=== PATIENT | female | born 1960 | race African-American/Black ===

== ENCOUNTER 2017-05-05 08:31 | Outpatient (CLI) | payer MEDICARE, MEDICAID | END 2017-05-05 08:32 | disposition home or self-care (01) | LOC: BICMAMMO 08:31 | PROVIDERS: ATTEND Family Medicine | DX: Z12.31 Encounter for screening mammogram for malignant neoplasm of breast (principal); Z85.3 Personal history of malignant neoplasm of breast | CPT/HCPCS: 77063; 77067 ==

== ENCOUNTER → 2017-05-05 | Outpatient (CLI) | payer MEDICARE, MEDICAID ==
[~2017-05-05] MED LIST: Gadobenate Dimeglumine 529 MG/1 ML (20ML VIAL) ONE
== END ==
LOC: BICMRI 12:54
PROVIDERS: ATTEND Family Medicine
DX: G44.89 Other headache syndrome (principal)
CPT/HCPCS: 70553; A9579

== ENCOUNTER 2017-06-04 19:50 | Emergency (ER) | payer MEDICARE, MEDICAID ==
[2017-06-04] MEDS ORDERED: traMADol HCl 50 MG TAB ONE (20:24)
--- NOTE | 2017-06-04 21:18 | CT ---
CERVICAL SPINE CT: Date: 06-04-17 Comparison: 05-29-13 History: Trauma, pain. Technique: Serial axial CT imaging at 2.5 mm intervals from skull base through the lung apices withou t contrast. Coronal and sagittal reformatted imaging obtained. FINDINGS: Imaged lung apices unremarkable. Imaged paranasal sinuses are well aerated. There is corticated disc continuity involving the anterior and posterior aspect of the C1 ring, stabl e, likely on the basis of congenital or remote post-traumatic change. The occipital condyles, dens, and C1-2 articulation are unremarkable. C6-7: Not well assessed on this exam. There is no significant anterolisthesis or retrolisthesis seen within the cervical spine. No preverte bral soft tissue swelling. No displaced fracture or evidence of dislocation. IMPRESSION: 1. No acute fracture or evidence of dislocation. POS: [facility]
--- NOTE | 2017-06-04 21:21 | CT ---
HEAD CT WITHOUT CONTRAST: Date: 06-04-17 Comparison: 11-04-13 History: Headache, trauma, pain. Technique: Serial axial CT imaging at 5 mm intervals from vertex through skull base without contrast. FINDINGS: The imaged paranasal sinuses and mastoid air cells are well aerated. There is incomplete fusion versu s old fracture involving the anterior and posterior aspect of the C1 ring. There is an old fracture involving the left zygomatic arch. 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 No intracra nial hemorrhage, midline shift, mass effect, or ventricular enlargement. No acute displaced calvarial fracture. IMPRESSION: Chronic findings as detailed above. No acute findings seen. POS: [facility]
== END 2017-06-04 21:32 | disposition home or self-care (01) ==
LOC: ERS 19:50
DX: S16.1XXA Strain of muscle, fascia and tendon at neck level, initial encounter (principal); S09.90XA Unspecified injury of head, initial encounter; E11.9 Type 2 diabetes mellitus without complications; E78.5 Hyperlipidemia, unspecified; I10 Essential (primary) hypertension; F32.9 Major depressive disorder, single episode, unspecified; F17.210 Nicotine dependence, cigarettes, uncomplicated; Z79.899 Other long term (current) drug therapy; Z79.84 Long term (current) use of oral hypoglycemic drugs; V00.131A Fall from skateboard, initial encounter
CPT/HCPCS: 70450; 72125

== ENCOUNTER 2017-09-05 09:21 | Outpatient (CLI) | payer MEDICARE, MEDICAID | END 2017-09-05 09:22 | disposition home or self-care (01) | LOC: BICRAD 09:21 | PROVIDERS: ATTEND Family Medicine | DX: M79.644 Pain in right finger(s) (principal) ==

== ENCOUNTER 2017-09-09 13:37 | Emergency (ER) | payer MEDICARE, MEDICAID ==
--- NOTE | 2017-09-09 14:42 | RAD ---
THREE VIEWS RIGHT WRIST: COMPARISON: None. History Fell while skating with right wrist pain. FINDINGS: Three views of the right wrist show no evidence of acute fracture or dislocation. Mild soft tissue s welling is seen. No degenerative changes are present. IMPRESSION: No evidence of acute osseous abnormality. POS: [facility]
[2017-09-09 15:00] LABS: #Basophils 0.1 thou/uL (0.0-0.2); #Eosinphils 0.1 thou/uL (0.0-0.7); #Lymphocytes 2.5 thou/uL (1.20-3.40); #Monocytes 0.5 thou/uL (0.11-0.59); #Neutrophils 3.2 thou/uL (1.40-6.50); %Basophils 1.2 % (0.0-1.0); %Eosinophils 1.1 % (0.0-10.0); %Lymphocytes 38.9 % (21.0-51.0); %Monocytes 8.2 % (0.0-10.0); %Neutrophils 50.6 % (42.0-75.0); Hemoglobin 10.9 g/dL (12.0-16.0); Mean Corpuscular HGB CONC 32.3 g/dL (32.0-36.0); Mean Corpuscular Hemoglobin 24.4 pg (27.0-31.0); Mean Corpuscular Volume 75.4 fL (78.0-98.0); Mean Platelet Volume 7.7 fL (7.4-10.4); Platelet Count 222 thou/uL (130-400); RBC Distribution Width 13.9 % (11.5-14.5); Red Blood Cell (RBC) Count 4.45 mill/uL (4.20-5.40); White Blood Cell (WBC) Count 6.4 thou/uL (4.8-10.8)
[2017-09-09 15:18] LABS: Anion Gap 13 mmol/L (10-20); BUN (Urea Nitrogen) 13 mg/dL (9.8-20.1); Calc. Creatinine Clearance 0 mL/min (70-130); Calcium 9.6 mg/dL (7.8-10.44); Carbon Dioxide 27 mmol/L (22-29); Chloride 105 mmol/L (98-107); Estimated GFR-MDRD 74; Glucose 81 mg/dL (70-105); Potassium 3.8 mmol/L (3.5-5.1); Sodium 141 mmol/L (136-145)
[2017-09-09] MEDS ORDERED: Acetaminophen 500 MG TAB ONE (15:24)
== END 2017-09-09 16:09 | disposition home or self-care (01) ==
LOC: ERS 13:37
DX: M25.531 Pain in right wrist (principal); D64.9 Anemia, unspecified; V00.131A Fall from skateboard, initial encounter; Y93.51 Activity, roller skating (inline) and skateboarding
CPT/HCPCS: 36415; 80048; 85025; 85652; 86140

== ENCOUNTER 2017-09-11 13:34 | Emergency (ER) | payer MEDICARE, MEDICAID ==
[2017-09-11] MEDS ORDERED: Ketorolac Tromethamine 60 MG/2 ML VIAL ONE (16:41)
== END 2017-09-11 17:05 | disposition home or self-care (01) ==
LOC: ERS 13:34
DX: M77.9 Enthesopathy, unspecified (principal); E11.9 Type 2 diabetes mellitus without complications; E78.5 Hyperlipidemia, unspecified; I10 Essential (primary) hypertension; F32.9 Major depressive disorder, single episode, unspecified; Z87.891 Personal history of nicotine dependence; Z79.84 Long term (current) use of oral hypoglycemic drugs; Z79.899 Other long term (current) drug therapy
CPT/HCPCS: 99283; J1885

== ENCOUNTER 2017-11-28 13:58 | Emergency (ER) | payer MEDICARE, MEDICAID ==
--- NOTE | 2017-11-28 15:39 | RAD ---
PA AND LATERAL CHEST: Date: 11/28/17 HISTORY: Cough. COMPARISON: 03/26/06. FINDINGS: The cardiac silhouette and pulmonary vasculature are within normal limits. The lungs remain clear. Th ere has been no interval change from prior study. IMPRESSION: No acute cardiopulmonary process. POS: [facility]
--- NOTE | 2017-11-28 15:43 | RAD ---
SOFT TISSUE NECK: Date: 11/28/17 HISTORY: Evaluate for foreign body. Patient accidentally swallowed her earrings while taking her medication. T hroat discomfort. COMPARISON: None. FINDINGS: No definite radiopaque foreign body. Calcification of the thyroid cartilage is noted. There appears t o be a round calcified focus projecting over the upper airway measuring 1.0 cm at the level of the C6 level. Correlation made with cervical spine from 06/04/17 demonstrates that the calcification at the level of the aerodigestive tract is actually within the right thyroid lobe. IMPRESSION: No evidence of a radiopaque foreign body. Nevertheless, direct visualization is recommended. POS: [facility]
== END 2017-11-28 15:53 | disposition home or self-care (01) ==
LOC: ERS 13:58
DX: T18.8XXA Foreign body in other parts of alimentary tract, initial encounter (principal); E11.9 Type 2 diabetes mellitus without complications; E78.5 Hyperlipidemia, unspecified; I10 Essential (primary) hypertension; Z87.891 Personal history of nicotine dependence
CPT/HCPCS: 70360; 71046

== ENCOUNTER 2018-04-11 10:20 | Outpatient (CLI) | payer MEDICARE, MEDICAID ==
--- NOTE | 2018-04-11 13:45 | ULT ---
LEFT BREAST ULTRASOUND: HISTORY: Palpable abnormality in the left breast. TECHNIQUE: Real-time imaging of the left breast was performed in the region of concern, at approximately the 2 o 'clock position. FINDINGS: No cystic or solid mass identified. IMPRESSION: BI-RADS category 2-Benign findings. POS: [facility]
== END 2018-04-11 10:21 | disposition home or self-care (01) ==
LOC: BICMAMMO 10:20
PROVIDERS: ATTEND Family Medicine
DX: N64.4 Mastodynia (principal); N64.89 Other specified disorders of breast; Z85.3 Personal history of malignant neoplasm of breast
CPT/HCPCS: 76642; 77065; G0279

== ENCOUNTER 2018-05-25 09:10 | Emergency (ER) | payer MEDICARE, MEDICAID ==
--- NOTE | 2018-05-25 09:57 | RAD ---
RIGHT HAND 3 VIEWS: Date: 05/25/18 HISTORY: Pain. Fall while skating. COMPARISON: None. FINDINGS: Advanced degenerative changes of the small finger proximal interphalangeal joint with remodeling of t he middle phalanx base. Mild degenerative disease of the radiocarpal joint. Likely an old fracture of distal radius. No acute fracture or malalignment is appreciated. IMPRESSION: Chronic findings. No acute displaced fracture or malalignment. POS: [facility]
== END 2018-05-25 10:31 | disposition home or self-care (01) ==
LOC: ERS 09:10
DX: M79.641 Pain in right hand (principal); M25.531 Pain in right wrist; E11.9 Type 2 diabetes mellitus without complications; E78.5 Hyperlipidemia, unspecified; I10 Essential (primary) hypertension; E55.9 Vitamin D deficiency, unspecified; Z87.891 Personal history of nicotine dependence; Z85.3 Personal history of malignant neoplasm of breast

== ENCOUNTER 2019-01-01 12:39 | Emergency (ER) | payer MEDICARE, MEDICAID ==
[2019-01-01] MEDS ORDERED: HYDROcodone/Acetaminophen 5/325 mg Tablet ONE (13:28)
--- NOTE | 2019-01-01 13:43 | RAD ---
RADIOGRAPH LEFT KNEE 4VIEWS: DATE: 01/01/2019 HISTORY: 58-year-old female with acute traumatic left knee pain due to fall FINDINGS: There is no evidence of fracture or dislocation. There is no evidence of periostitis, permeative lesi on, osteolytic lesion, or osteoblastic lesion. The joint spaces are maintained without erosions or significant osteophytes. No joint effusion is identified. IMPRESSION: Normal
== END 2019-01-01 14:06 | disposition home or self-care (01) ==
LOC: ERS 12:39
DX: M25.562 Pain in left knee (principal); E11.9 Type 2 diabetes mellitus without complications; E78.5 Hyperlipidemia, unspecified; I10 Essential (primary) hypertension; Z85.3 Personal history of malignant neoplasm of breast; Z87.891 Personal history of nicotine dependence; W01.0XXA Fall on same level from slipping, tripping and stumbling without subsequent striking against object, initial encounter

== ENCOUNTER 2019-05-14 08:14 | Outpatient (CLI) | payer MEDICARE, MEDICAID ==
--- NOTE | 2019-05-14 09:41 | MMO ---
Bilateral MAMMO Bilat Screen [facility]. CLINICAL HISTORY: Patient is 58 years old and is seen for screening. 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 VIEWS: The views performed were: right craniocaudal with tomosynthesis and right mediolateral oblique with tomosynthesis. FILMS COMPARED: The present examination has been compared to prior imaging studies performed at [facility] on 11/14/2014, 02/17/2016, 05/05/2017 and 04/11/2018. This study has been interpreted with the assistance of computer-aided detection. MAMMOGRAM FINDINGS: There are scattered fibroglandular densities. Finding 1: There are stable benign appearing calcifications seen in both breasts. Finding 2: There is a stable asymmetry seen in the upper region of the left breast. There are no suspicious masses, suspicious calcifications, or new areas of architectural distortion. IMPRESSION: THERE IS NO MAMMOGRAPHIC EVIDENCE OF MALIGNANCY. A ROUTINE FOLLOW-UP MAMMOGRAM IN 1 YEAR IS RECOMMENDED. THE RESULTS OF THIS EXAM WERE SENT TO THE PATIENT. ACR BI-RADS Category 2 - Benign finding MAMMOGRAPHY NOTE: 1. A negative mammogram report should not delay a biopsy if a dominant of clinically suspicious mass is present. 2. Approximately 10% to 15% of breast cancers are not detected by mammography. 3. Adenosis and dense breasts may obscure an underlying neoplasm. Reported by: ROSE VALENTE MD Electonically Signed: [id number]
== END 2019-05-14 08:15 | disposition home or self-care (01) ==
LOC: BICMAMMO 08:14
PROVIDERS: ATTEND Family Medicine
DX: Z12.31 Encounter for screening mammogram for malignant neoplasm of breast (principal); Z91.89 Other specified personal risk factors, not elsewhere classified; Z98.82 Breast implant status; Z90.11 Acquired absence of right breast and nipple; Z85.3 Personal history of malignant neoplasm of breast
CPT/HCPCS: 77063; 77067

== ENCOUNTER 2019-08-19 14:27 | Emergency (ER) | payer MEDICARE, MEDICAID ==
[2019-08-19 16:10] LABS: Bilirubin Negative (Negative); Blood, Urine Negative (Negative); Clarity Clear (Clear); Glucose, Urine (Dipstick) Normal (Negative); Leukocyte Negative Leu/uL (Negative); Nitrite Negative (Negative); Protein, Urine (Dipstick) Negative (Neg-Trace)
== END 2019-08-19 17:45 | disposition home or self-care (01) ==
LOC: ERS 14:27
DX: S30.814A Abrasion of vagina and vulva, initial encounter (principal); E11.9 Type 2 diabetes mellitus without complications; E78.5 Hyperlipidemia, unspecified; I10 Essential (primary) hypertension; E55.9 Vitamin D deficiency, unspecified; F31.9 Bipolar disorder, unspecified; Z87.891 Personal history of nicotine dependence; Z85.3 Personal history of malignant neoplasm of breast; Z86.79 Personal history of other diseases of the circulatory system; X58.XXXA Exposure to other specified factors, initial encounter
CPT/HCPCS: 81003; 87086; 99283

== ENCOUNTER 2019-09-02 10:54 | Emergency (ER) | payer MEDICARE, MEDICAID | END 2019-09-02 15:15 | disposition home or self-care (01) | LOC: ERS 10:54 | DX: I80.02 Phlebitis and thrombophlebitis of superficial vessels of left lower extremity (principal); L03.032 Cellulitis of left toe; E11.9 Type 2 diabetes mellitus without complications; E78.5 Hyperlipidemia, unspecified; I10 Essential (primary) hypertension; F31.9 Bipolar disorder, unspecified; Z87.891 Personal history of nicotine dependence; Z79.899 Other long term (current) drug therapy | CPT/HCPCS: 99283 ==

== ENCOUNTER 2019-10-02 10:40 | Outpatient (CLI) | payer MEDICARE, MEDICAID ==
--- NOTE | 2019-10-02 11:15 | RAD ---
XR Knee Lt 4 View STANDARD HISTORY: Left anterior knee pain FINDINGS: No fracture or dislocation is identified. No joint effusion is seen.
--- NOTE | 2019-10-02 11:15 | RAD ---
XR Knee Rt 4 View STANDARD HISTORY: Swelling of the right knee joint and pain FINDINGS: No acute fracture or dislocation is identified. Mild degenerative changes are present. No joint effus ion is seen. A well-corticated bony density adjacent to the medial femoral condyle is likely due to remote trauma.
== END 2019-10-02 10:41 | disposition home or self-care (01) ==
LOC: BICRAD 10:40
PROVIDERS: ATTEND Family Medicine
DX: M25.562 Pain in left knee (principal); M25.461 Effusion, right knee

== ENCOUNTER 2020-01-16 13:52 | Outpatient (CLI) | payer MEDICARE, MEDICAID ==
--- NOTE | 2020-01-16 14:54 | MMO ---
Left Breast MAMMO Unilat Diag [facility]DI [facility]TIERA. CLINICAL HISTORY: Patient is 59 years old and is seen for diagnostic exam and pain in the upper-outer region of the left breast. 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 VIEWS: The views performed were: left craniocaudal with tomosynthesis; left mediolateral oblique with tomosynthesis; left mediolateral with tomosynthesis; and left exaggerated craniocaudal with tomosynthesis. FILMS COMPARED: The present examination has been compared to prior imaging studies performed at [facility] on 05/05/2017, 04/11/2018, 05/14/2019 and 01/16/2020. This study has been interpreted with the assistance of computer-aided detection. MAMMOGRAM FINDINGS: There are scattered fibroglandular densities. Finding 1: There are stable benign appearing calcifications seen in the left breast. Finding 2: There is a stable asymmetry seen in the upper region of the left breast. There are no suspicious masses, suspicious calcifications, or new areas of architectural distortion. IMPRESSION: THERE IS NO MAMMOGRAPHIC EVIDENCE OF MALIGNANCY. A ROUTINE FOLLOW-UP MAMMOGRAM IN 1 YEAR IS RECOMMENDED. THE RESULTS OF THIS EXAM WERE SENT TO THE PATIENT. ACR BI-RADS Category 2 - Benign finding MAMMOGRAPHY NOTE: 1. A negative mammogram report should not delay a biopsy if a dominant of clinically suspicious mass is present. 2. Approximately 10% to 15% of breast cancers are not detected by mammography. 3. Adenosis and dense breasts may obscure an underlying neoplasm. Reported by: ROSE VALENTE MD Electonically Signed: [id number]
--- NOTE | 2020-01-16 17:59 | ULT ---
LIMITED ULTRASOUND LEFT BREAST: 01/16/20 HISTORY: Pain in the upper outer left breast. FINDINGS: Limited sonographic evaluation was obtained in region of patient's focal area of pain. No solid mass or cystic lesion is seen in the left breast imaging from the 12 o'clock to 3 o'clock position in saloni on of patient's pain. No mammographic abnormality is demonstrated in the left breast. IMPRESSION: 1. BIRADS 2: Benign Finding(s) Routine annual screening mammography (for women over age 40). 2. Patient's left breast pain should be further managed clinically. POS: [facility]
== END 2020-01-16 13:53 | disposition home or self-care (01) ==
LOC: BICMAMMO 13:52
PROVIDERS: ATTEND Family Medicine
DX: N64.4 Mastodynia (principal); Z90.11 Acquired absence of right breast and nipple
CPT/HCPCS: 76642; 77065; G0279

== ENCOUNTER 2020-07-12 20:39 | Observation (INO) | payer MEDICARE, MEDICAID ==
[2020-07-12] MEDS ORDERED: Nitroglycerin 2% Ointment 1 INCH/1 GM Packet ONE (21:22)
[2020-07-12 21:45] LABS: #Basophils 0.1 thou/uL (0.0-0.2); #Eosinphils 0.1 thou/uL (0.0-0.7); #Lymphocytes 2.7 thou/uL (1.20-3.40); #Monocytes 0.6 thou/uL (0.11-0.59); #Neutrophils 2.5 thou/uL (1.40-6.50); %Basophils 0.9 % (0.0-1.0); %Eosinophils 1.6 % (0.0-10.0); %Lymphocytes 45.1 % (21.0-51.0); %Neutrophils 42.4 % (42.0-75.0); Hemoglobin 11.5 g/dL (12.0-16.0); Mean Corpuscular HGB CONC 31.8 g/dL (32.0-36.0); Mean Corpuscular Hemoglobin 24.1 pg (27.0-31.0); Mean Platelet Volume 8.4 fL (7.4-10.4); Platelet Count 249 thou/uL (130-400); Red Blood Cell (RBC) Count 4.75 mill/uL (4.20-5.40)
[2020-07-12 21:47] LABS: ALT (SGPT) 18 U/L (8-55); AST (SGOT) 23 U/L (5-34); Albumin 4.3 g/dL (3.5-5.0); Alkaline Phosphatase 46 U/L (40-110); Anion Gap 16 mmol/L (10-20); BUN (Urea Nitrogen) 11 mg/dL (9.8-20.1); Bilirubin, Total 0.2 mg/dL (0.2-1.2); Calc. Creatinine Clearance 0 mL/min (70-130); Calcium 9.3 mg/dL (7.8-10.44); Carbon Dioxide 23 mmol/L (22-29); Chloride 105 mmol/L (98-107); Globulin 3.6 g/dL (2.4-3.5); Glucose 103 mg/dL (70-105); Potassium 3.8 mmol/L (3.5-5.1); Protein, Total 7.9 g/dL (6.0-8.3); Sodium 140 mmol/L (136-145)
[2020-07-12] MEDS ORDERED: Aspirin 81 mg Enteric Coated Tablet ONE (22:13)
[2020-07-12] MEDS ORDERED: Senokot S 8.6-50 MG TAB PO PRN (22:20)
[2020-07-12] MEDS ORDERED: Nitroglycerin 0.4 MG TAB (25 Tab Bottle) SL PRN (23:40)
[2020-07-13 00:56] VITALS: BMI 31.1
[2020-07-13 01:19] LABS: Troponin I Less than 0.010 ng/mL (< 0.028)
[2020-07-13 05:12] LABS: ALT (SGPT) 15 U/L (8-55); AST (SGOT) 17 U/L (5-34); Albumin 3.8 g/dL (3.5-5.0); Alkaline Phosphatase 39 U/L (40-110); Anion Gap 13 mmol/L (10-20); BUN (Urea Nitrogen) 12 mg/dL (9.8-20.1); Bilirubin, Total 0.3 mg/dL (0.2-1.2); Calc. Creatinine Clearance 86 mL/min (70-130); Calcium 9.3 mg/dL (7.8-10.44); Carbon Dioxide 24 mmol/L (22-29); Cardiac Risk 2.9 (Less than 4.5); Chloride 106 mmol/L (98-107); Cholesterol 165 mg/dl (< 200 Desired); Globulin 3.1 g/dL (2.4-3.5); Glucose 81 mg/dL (70-105); HDL Cholesterol 57 mg/dL (>60 Neg Risk); LDL Cholesterol, Calculated 91 mg/dL; Potassium 3.2 mmol/L (3.5-5.1); Protein, Total 6.9 g/dL (6.0-8.3); Sodium 140 mmol/L (136-145); Triglycerides 84 mg/dL (Less than 150)
[2020-07-13 05:14] LABS: Troponin I 0.017 ng/mL (< 0.028)
[2020-07-13 05:40] LABS: Band 1 % (5-11); Eosinophils 2 % (0-10); Hemoglobin 10.7 g/dL (12.0-16.0); Lymphocytes 56 % (21-51); MDiff Complete? YES; Mean Corpuscular HGB CONC 31.3 g/dL (32.0-36.0); Mean Corpuscular Hemoglobin 23.7 pg (27.0-31.0); Mean Corpuscular Volume 75.5 fL (78.0-98.0); Mean Platelet Volume 8.2 fL (7.4-10.4); Monocytes 10 % (0-10); Neutrophil 30 % (42-75); Platelet Count 230 thou/uL (130-400); RBC Distribution Width 13.8 % (11.5-14.5); Red Blood Cell (RBC) Count 4.53 mill/uL (4.20-5.40); White Blood Cell (WBC) Count 6.4 thou/uL (4.8-10.8)
[2020-07-13 08:00] VITALS: TEMP 97.8
[2020-07-13 08:39] LABS: SARS-CoV-2 PCR by NAA Not Detected (NotDetected)
[2020-07-13] MEDS: Acetaminophen 325 MG TAB PO PRN ×2 (08:39→13:24)
[2020-07-13] MEDS ORDERED: Aspirin 325 mg Enteric Coated Tablet PO SCH (09:00)
[2020-07-13] MEDS ORDERED: Enoxaparin Sodium 40 MG/0.4 ML SYRINGE SC SCH (09:00)
[2020-07-13] MEDS ORDERED: Famotidine 20 MG TAB PO SCH (09:00)
[2020-07-13 09:35] LABS: Free T4 (Free Thyroxine) 0.65 ng/dL (0.70-1.48)
[2020-07-13] MEDS ORDERED: ADENOSINE 60 MG/20 ML VIAL ONE (10:10)
[2020-07-13 16:00] VITALS: BP 135/78
== END 2020-07-13 17:25 | disposition home or self-care (01) ==
LOC: ERS 20:39 → 2SE 22:18
PROVIDERS: ADMIT Student in an Organized Health Care Education/Training Program; ATTEND Hospitalist
DX: R07.89 Other chest pain (principal); I10 Essential (primary) hypertension; E03.9 Hypothyroidism, unspecified; E11.9 Type 2 diabetes mellitus without complications; E78.5 Hyperlipidemia, unspecified; Z85.3 Personal history of malignant neoplasm of breast; Z87.891 Personal history of nicotine dependence; Z79.82 Long term (current) use of aspirin; Z79.899 Other long term (current) drug therapy; Z20.822 Contact with and (suspected) exposure to COVID-19
CPT/HCPCS: 71045; 78452; 80053; 80061; 82962; 84439; 84481; 84484 ×3; 85025; 93005; 93017; 94760 ×2; 96372; 99285; A9500; G0378 ×3; U0003; U0005; 36415; 36416; 84443; 87635; J0153; J1650

== ENCOUNTER 2020-12-02 08:42 | Outpatient (CLI) | payer MEDICARE, MEDICAID ==
[2020-12-02] MEDS ORDERED: Iopamidol-370 76% 500 ML 1 ML ONE (10:52)
== END 2020-12-02 08:43 | disposition home or self-care (01) ==
LOC: BICCT 08:42
PROVIDERS: ATTEND Internal Medicine Cardiovascular Disease
DX: K66.8 Other specified disorders of peritoneum (principal); N28.1 Cyst of kidney, acquired; J84.10 Pulmonary fibrosis, unspecified; K42.9 Umbilical hernia without obstruction or gangrene
CPT/HCPCS: 74177; Q9967

== ENCOUNTER 2021-01-20 09:42 | Outpatient (CLI) | payer MEDICARE, MEDICAID | END 2021-01-20 09:43 | disposition home or self-care (01) | LOC: BICMAMMO 09:42 | PROVIDERS: ATTEND Family Medicine | DX: Z12.31 Encounter for screening mammogram for malignant neoplasm of breast (principal); Z85.3 Personal history of malignant neoplasm of breast; Z91.89 Other specified personal risk factors, not elsewhere classified; Z90.11 Acquired absence of right breast and nipple; Z98.82 Breast implant status | CPT/HCPCS: 77063; 77067 ==

== ENCOUNTER 2021-08-06 07:54 | Outpatient (CLI) | payer MEDICARE, MEDICAID | END 2021-08-06 07:55 | disposition home or self-care (01) | LOC: BICULT 07:54 | PROVIDERS: ATTEND Family Medicine | DX: N64.4 Mastodynia (principal); Z85.3 Personal history of malignant neoplasm of breast; Z90.11 Acquired absence of right breast and nipple; Z98.82 Breast implant status ==

== ENCOUNTER → 2021-08-10 | Day surgery (SDC) | payer MEDICARE, MEDICAID | END | disposition home or self-care (01) | LOC: BICULT 12:50 | PROVIDERS: ATTEND Family Medicine | PROC: 0H9T3ZX Drainage of Right Breast, Percutaneous Approach, Diagnostic (ICD-10-PCS; principal; 2021-08-10) | DX: C50.411 Malignant neoplasm of upper-outer quadrant of right female breast (principal); Z17.0 Estrogen receptor positive status [ER+] | CPT/HCPCS: 19083; 88305; 88341; 88342 ==

== ENCOUNTER 2021-08-26 13:04 | Outpatient (CLI) | payer MEDICARE, MEDICAID | END 2021-08-26 13:05 | disposition home or self-care (01) | PROVIDERS: ATTEND Family Medicine | DX: Z76.89 Persons encountering health services in other specified circumstances (principal) ==

== ENCOUNTER 2021-08-31 10:28 | Outpatient (CLI) | payer MEDICARE, MEDICAID ==
[2021-08-31 11:42] LABS: #Eosinphils 0.1 10x3/uL (0.0-0.5); #Monocytes 0.5 10x3/uL (0.0-1.1); #Neutrophils 2.6 10x3/uL (1.5-8.4); %Basophils 0.4 % (0.0-2.0); %Eosinophils 1.2 % (0.0-6.0); %Lymphocytes 38.1 % (18.0-47.0); %Monocytes 10.3 % (0.0-10.0); %Neutrophils 49.8 % (40.0-75.0); Hemoglobin 11.7 g/dL (12.0-15.5); Mean Corpuscular HGB CONC 30.6 g/dL (32.0-36.0); Mean Corpuscular Hemoglobin 23.1 pg (27.0-33.0); Mean Corpuscular Volume 75.3 fl (81.6-98.3); Platelet Count 289 10x3/uL (150-450); RBC Distribution Width 17.8 % (11.5-14.5); Red Blood Cell (RBC) Count 5.07 10x6/uL (3.90-5.03); White Blood Cell (WBC) Count 5.1 10x3/uL (3.5-10.5)
[2021-08-31 12:16] LABS: Anion Gap 15 mmol/L (10-20); BUN (Urea Nitrogen) 15 mg/dL (9.8-20.1); Calc. Creatinine Clearance 0 mL/min (70-130); Calcium 9.2 mg/dL (7.8-10.44); Carbon Dioxide 27 mmol/L (22-29); Chloride 103 mmol/L (98-107); Glucose 126 mg/dL (70-105); Sodium 141 mmol/L (136-145)
== END 2021-08-31 10:29 | disposition home or self-care (01) ==
LOC: LABBT 10:28
PROVIDERS: ATTEND Specialist
DX: Z01.812 Encounter for preprocedural laboratory examination (principal); C50.911 Malignant neoplasm of unspecified site of right female breast; C77.9 Secondary and unspecified malignant neoplasm of lymph node, unspecified; Z20.822 Contact with and (suspected) exposure to COVID-19
CPT/HCPCS: 80048; 85025; U0003; U0005

== ENCOUNTER 2021-09-03 10:25 | Day surgery (SDC) | payer MEDICARE, MEDICAID ==
[2021-08-31 13:56] VITALS: BMI 31.1
[2021-09-03] MEDS ORDERED: fentaNYL Citrate/PF 100 MCG/2 ML SYRINGE ONE (11:54)
[2021-09-03] MEDS ORDERED: Bupivacaine 0.25% HCL 30 ML VIAL ONE (12:21)
[2021-09-03] MEDS ORDERED: Lidocaine 1% w/Epinephrine 1:100K 20 ML VIAL ONE (12:21)
[2021-09-03] MEDS ORDERED: Ketorolac Tromethamine 30 MG/ML VIAL ONE (12:31)
[2021-09-03] MEDS ORDERED: Acetaminophen 500 MG TAB ONE (12:31)
[2021-09-03] MEDS ORDERED: Sodium Chloride 0.9% 100 ML ONE (12:34)
[2021-09-03] MEDS ORDERED: CEFAZOLIN 2 GM VIAL ONE (12:34)
[2021-09-03] MEDS ORDERED: HYDROcodone/Acetaminophen 5/325 mg Tablet ONE ×2 (15:32→15:34)
== END 2021-09-03 16:23 | disposition home or self-care (01) ==
LOC: SDC 10:25
PROVIDERS: ATTEND Specialist
PROC: 0HBT0ZZ Excision of Right Breast, Open Approach (ICD-10-PCS; principal; 2021-09-03)
DX: C50.411 Malignant neoplasm of upper-outer quadrant of right female breast (principal); I10 Essential (primary) hypertension; E11.9 Type 2 diabetes mellitus without complications; Z17.0 Estrogen receptor positive status [ER+]; Z79.82 Long term (current) use of aspirin; Z79.84 Long term (current) use of oral hypoglycemic drugs; Z79.890 Hormone replacement therapy; Z79.899 Other long term (current) drug therapy
CPT/HCPCS: 19301; 76098; C1713; 88307; J0690; J1885; J3490; S0020

== ENCOUNTER 2021-09-21 14:55 | Outpatient (CLI) | payer MEDICARE, MEDICAID | END 2021-09-21 14:56 | disposition home or self-care (01) | LOC: LABBT 14:55 | PROVIDERS: ATTEND Specialist | DX: C50.911 Malignant neoplasm of unspecified site of right female breast (principal) | CPT/HCPCS: 87811 ==

== ENCOUNTER 2021-09-22 08:03 | Outpatient (CLI) | payer MEDICARE, MEDICAID ==
[~2021-09-22 08:03] MED LIST changes: -Gadobenate Dimeglumine 529 MG/1 ML (20ML VIAL) ONE; +Iopamidol 370 76% 100 ML VIAL ONE
== END 2021-09-22 08:04 | disposition home or self-care (01) ==
LOC: CT 08:03
PROVIDERS: ATTEND Internal Medicine Hematology & Oncology
DX: C50.811 Malignant neoplasm of overlapping sites of right female breast (principal)
CPT/HCPCS: 71260; 74177; Q9967

== ENCOUNTER 2021-09-23 05:53 | Day surgery (SDC) | payer MEDICARE, MEDICAID ==
[2021-09-23] MEDS ORDERED: Acetaminophen 500 MG TAB ONE (06:17)
[2021-09-23] MEDS ORDERED: Ketorolac Tromethamine 30 MG/ML VIAL ONE (06:17)
[2021-09-23] MEDS ORDERED: Lidocaine 1% w/Epinephrine 1:100K 20 ML VIAL ONE (06:29)
[2021-09-23] MEDS ORDERED: Bupivacaine 0.25% HCL 30 ML VIAL ONE (06:29)
[2021-09-23] MEDS ORDERED: Midazolam HCl 2 mg/2 ml Vial ONE (06:32)
[2021-09-23] MEDS ORDERED: fentaNYL Citrate/PF 100 MCG/2 ML SYRINGE ONE ×2 (06:33)
[2021-09-23] MEDS ORDERED: CEFAZOLIN 2 GM VIAL ONE (07:21)
[2021-09-23] MEDS ORDERED: Sodium Chloride 0.9% 100 ML ONE (07:21)
[2021-09-23] MEDS ORDERED: ePHEDrine Sulfate 50 MG/10 ML VIAL ONE (07:34)
[2021-09-23] MEDS ORDERED: Dexamethasone 20 MG/5 ML VIAL ONE (07:34)
[2021-09-23] MEDS ORDERED: Ondansetron PF 4 MG/2 ML Vial ONE (07:34)
[2021-09-23] MEDS ORDERED: PROPOFOL 200 MG/20 ML VIAL ONE (07:34)
[2021-09-23] MEDS ORDERED: Lidocaine 1% PF 5 ML VIAL ONE (07:34)
== END 2021-09-23 09:41 | disposition home or self-care (01) ==
LOC: SDC 05:53
PROVIDERS: ATTEND Specialist
PROC: 0HBT0ZZ Excision of Right Breast, Open Approach (ICD-10-PCS; principal; 2021-09-23)
DX: C50.411 Malignant neoplasm of upper-outer quadrant of right female breast (principal); I10 Essential (primary) hypertension; E11.9 Type 2 diabetes mellitus without complications; Z79.84 Long term (current) use of oral hypoglycemic drugs; Z79.899 Other long term (current) drug therapy
CPT/HCPCS: 19301; C1776; C1889; 88307; J0690; J1885; J2250; J3490; S0020

== ENCOUNTER 2021-10-19 13:55 | Outpatient (CLI) | payer MEDICARE, MEDICAID ==
[~2021-10-19 13:55] MED LIST changes: +Magnevist 469MG/ML 20 ML VIAL ONE
== END 2021-10-19 13:56 | disposition home or self-care (01) ==
LOC: CT 13:55
PROVIDERS: ATTEND Psychiatry & Neurology Neurology
DX: R51.9 Headache, unspecified (principal); G89.29 Other chronic pain; I67.82 Cerebral ischemia; Z98.890 Other specified postprocedural states
CPT/HCPCS: 70496; 70553; A9579; Q9967

== ENCOUNTER 2021-10-28 13:20 | Outpatient (CLI) | payer MEDICARE, MEDICAID | END 2021-10-28 13:21 | disposition home or self-care (01) | LOC: BICMAMMO 13:20 | PROVIDERS: ATTEND Internal Medicine Hematology & Oncology | DX: Z13.820 Encounter for screening for osteoporosis (principal); C50.811 Malignant neoplasm of overlapping sites of right female breast; T38.6X5A Adverse effect of antigonadotrophins, antiestrogens, antiandrogens, not elsewhere classified, initial encounter; M85.89 Other specified disorders of bone density and structure, multiple sites | CPT/HCPCS: 77080 ==

== ENCOUNTER 2021-12-14 12:06 | Outpatient (CLI) | payer MEDICARE, MEDICAID | END 2021-12-14 12:07 | disposition home or self-care (01) | LOC: RAD 12:06 | PROVIDERS: ATTEND Family Medicine | DX: M25.512 Pain in left shoulder (principal) ==

== ENCOUNTER 2022-01-10 08:15 | Emergency (ER) | payer MEDICARE, MEDICAID | END 2022-01-10 09:24 | disposition home or self-care (01) | LOC: ERS 08:15 | DX: E11.621 Type 2 diabetes mellitus with foot ulcer (principal); L97.829 Non-pressure chronic ulcer of other part of left lower leg with unspecified severity; L03.116 Cellulitis of left lower limb; E78.5 Hyperlipidemia, unspecified; I10 Essential (primary) hypertension; Z87.891 Personal history of nicotine dependence | CPT/HCPCS: 99283 ==

== ENCOUNTER 2022-06-01 19:30 | Outpatient (CLI) | payer MEDICARE, MEDICAID | END 2022-06-01 19:31 | disposition home or self-care (01) | LOC: SLEEPLAB 19:30 | PROVIDERS: ATTEND Family Medicine | DX: G47.33 Obstructive sleep apnea (adult) (pediatric) (principal); G47.10 Hypersomnia, unspecified | CPT/HCPCS: 95810 ==

== ENCOUNTER 2022-11-17 15:05 | Outpatient (CLI) | payer MEDICARE, MEDICAID | END 2022-11-17 15:06 | disposition home or self-care (01) | LOC: BICMAMMO 15:05 | PROVIDERS: ATTEND Internal Medicine Hematology & Oncology | DX: Z13.820 Encounter for screening for osteoporosis (principal); M85.89 Other specified disorders of bone density and structure, multiple sites; T38.6X5A Adverse effect of antigonadotrophins, antiestrogens, antiandrogens, not elsewhere classified, initial encounter | CPT/HCPCS: 77080 ==

== ENCOUNTER 2023-01-13 08:07 | Outpatient (CLI) | payer MEDICARE, MEDICAID | END 2023-01-13 08:08 | disposition home or self-care (01) | LOC: BICMAMMO 08:07 | PROVIDERS: ATTEND Family Medicine | DX: Z08 Encounter for follow-up examination after completed treatment for malignant neoplasm (principal); Z85.3 Personal history of malignant neoplasm of breast; N63.23 Unspecified lump in the left breast, lower outer quadrant | CPT/HCPCS: 76642; 77065; G0279 ==

== ENCOUNTER 2023-09-08 08:46 | Outpatient (CLI) | payer MEDICARE, MEDICAID | END 2023-09-08 08:47 | disposition home or self-care (01) | LOC: BICMAMMO 08:46 | PROVIDERS: ATTEND Internal Medicine Hematology & Oncology | DX: Z13.820 Encounter for screening for osteoporosis (principal); C50.811 Malignant neoplasm of overlapping sites of right female breast; M85.89 Other specified disorders of bone density and structure, multiple sites | CPT/HCPCS: 77080 ==

== ENCOUNTER 2024-02-27 09:02 | Outpatient (CLI) | payer MEDICARE, MEDICAID ==
[2024-02-27] MEDS ORDERED: Iopamidol 370 76% 100 ML VIAL ONE (11:39)
== END 2024-02-27 09:03 | disposition home or self-care (01) ==
LOC: BICCT 09:02
PROVIDERS: ATTEND Internal Medicine Hematology & Oncology
DX: C50.811 Malignant neoplasm of overlapping sites of right female breast (principal); J98.4 Other disorders of lung; Z90.11 Acquired absence of right breast and nipple
CPT/HCPCS: 36415; 71260; 82565

== ENCOUNTER 2024-12-02 20:27 | Inpatient (IN) | payer MEDICARE, MEDICAID ==
[2024-12-03] MEDS ORDERED: HYDROcodone/Acetaminophen 5/325 mg Tablet ONE (00:52)
[2024-12-03] MEDS ORDERED: Methocarbamol 500 MG TAB ONE (01:08)
[2024-12-03 01:15] LABS: #Basophils Less than 0.03 10x3/uL (0.0-0.2); #Eosinophils 0.08 10x3/uL (0.0-0.7); #Monocytes 1.13 10x3/uL (0.11-0.59); #Neutrophils 6.12 10x3/uL (1.40-6.50); %Basophils 0.2 % (0.0-1.0); %Eosinophils 0.9 % (0.0-10.0); %Lymphocytes 20.2 % (21.0-51.0); %Monocytes 12.2 % (0.0-10.0); %Neutrophils 66.2 % (42.0-75.0); Hematocrit 37.4 % (36.0-47.0); Hemoglobin 11.1 g/dL (12.0-16.0); Mean Corpuscular Hemoglobin 23.0 pg (27.0-31.0); Mean Corpuscular Volume 77.6 fL (78.0-98.0); Platelet Count 288 10x3/uL (130-400); Red Blood Cell (RBC) Count 4.82 mill/uL (4.20-5.40); White Blood Cell (WBC) Count 9.25 10x3/uL (4.8-10.8)
[2024-12-03 01:35] LABS: ALT (SGPT) 17 U/L (Less than 34); AST (SGOT) 26 U/L (11-34); Albumin 4.1 g/dL (3.1-4.5); Alkaline Phosphatase 57 U/L (40-110); Anion Gap 17 mmol/L (10-20); BUN (Urea Nitrogen) 13 mg/dL (9.8-20.1); Bilirubin, Total 0.1 mg/dL (0.3-1.2); Calc. Creatinine Clearance 0 mL/min (70-130); Calcium 9.2 mg/dL (7.8-10.44); Carbon Dioxide 25 mmol/L (23-31); Chloride 104 mmol/L (98-107); Globulin 3.9 g/dL (2.4-3.5); Glucose 117 mg/dL (80-115); Potassium 3.5 mmol/L (3.5-5.1); Sodium 142 mmol/L (136-145)
[2024-12-03] MEDS ORDERED: Dextrose 50% Abboject 50 ML SYRINGE SLOW IVP PRN (01:55)
[2024-12-03] MEDS ORDERED: hydrALAZINE 20 MG/ML VIAL SLOW IVP PRN (01:55)
[2024-12-03] MEDS ORDERED: Glucagon 1 MG/ML KIT IM PRN (01:55)
[2024-12-03 03:47] VITALS: BMI 30.5
[2024-12-03] MEDS: Ondansetron PF 4 MG/2 ML Vial IVP PRN (03:49)
[2024-12-03] MEDS: Acetaminophen 325 MG TAB PO SCH (04:48)
[2024-12-03 05:58] LABS: #Basophils Less than 0.03 10x3/uL (0.0-0.2); #Eosinophils 0.05 10x3/uL (0.0-0.7); #Monocytes 1.50 10x3/uL (0.11-0.59); #Neutrophils 6.45 10x3/uL (1.40-6.50); %Basophils 0.0 % (0.0-1.0); %Eosinophils 0.5 % (0.0-10.0); %Lymphocytes 13.4 % (21.0-51.0); %Monocytes 16.1 % (0.0-10.0); %Neutrophils 69.5 % (42.0-75.0); Hematocrit 34.6 % (36.0-47.0); Hemoglobin 10.6 g/dL (12.0-16.0); Mean Corpuscular Hemoglobin 23.3 pg (27.0-31.0); Mean Corpuscular Volume 76.2 fL (78.0-98.0); Platelet Count 249 10x3/uL (130-400); Red Blood Cell (RBC) Count 4.54 mill/uL (4.20-5.40); White Blood Cell (WBC) Count 9.30 10x3/uL (4.8-10.8)
[2024-12-03 06:14] LABS: Anion Gap 13 mmol/L (10-20); BUN (Urea Nitrogen) 11 mg/dL (9.8-20.1); Calc. Creatinine Clearance 92 mL/min (70-130); Calcium 8.6 mg/dL (7.8-10.44); Carbon Dioxide 24 mmol/L (23-31); Chloride 105 mmol/L (98-107); Glucose 107 mg/dL (80-115); Potassium 3.4 mmol/L (3.5-5.1); Sodium 139 mmol/L (136-145)
[2024-12-03] MEDS: Methocarbamol 500 MG TAB PO SCH (08:37)
[2024-12-03] MEDS: Potassium Chloride 20 MEQ in Premix 1 BAG IVPB SCH (08:40)
[2024-12-03] MEDS ORDERED: Albuterol 200 PUFF (6.7GM INHALER) INH PRN (11:46)
[2024-12-03] MEDS ORDERED: Ibuprofen 600 MG TAB PO PRN (11:46)
[2024-12-03] MEDS ORDERED: Ondansetron PF 4 MG/2 ML Vial ONE (12:33)
[2024-12-03] MEDS ORDERED: PROPOFOL 20 ML ONE (12:33)
[2024-12-03] MEDS ORDERED: Lidocaine 1% PF 5 ML VIAL ONE (12:33)
[2024-12-03] MEDS ORDERED: fentaNYL PF 100 MCG/2 ML SYRINGE ONE (12:33)
[2024-12-03] MEDS ORDERED: CEFAZOLIN 2 GM VIAL ONE (13:11)
[2024-12-03] MEDS ORDERED: PHENYLEPHRINE-NS 100 MCG/ML 10 ML SYRINGE ONE (14:22)
[2024-12-03] MEDS: Gabapentin 100 MG CAP PO SCH (15:41)
[2024-12-03] MEDS: Cyclobenzaprine 10 MG TAB PO PRN (20:30)
[2024-12-04 05:53] LABS: #Basophils Less than 0.03 10x3/uL (0.0-0.2); #Eosinophils Less than 0.03 10x3/uL (0.0-0.7); #Monocytes 0.77 10x3/uL (0.11-0.59); #Neutrophils 6.07 10x3/uL (1.40-6.50); %Basophils 0.1 % (0.0-1.0); %Eosinophils 0.0 % (0.0-10.0); %Lymphocytes 13.6 % (21.0-51.0); %Monocytes 9.7 % (0.0-10.0); %Neutrophils 76.2 % (42.0-75.0); Hematocrit 29.3 % (36.0-47.0); Hemoglobin 9.0 g/dL (12.0-16.0); Mean Corpuscular Hemoglobin 23.4 pg (27.0-31.0); Mean Corpuscular Volume 76.1 fL (78.0-98.0); Platelet Count 235 10x3/uL (130-400); Red Blood Cell (RBC) Count 3.85 mill/uL (4.20-5.40); White Blood Cell (WBC) Count 7.96 10x3/uL (4.8-10.8)
[2024-12-04 06:14] LABS: Anion Gap 10 mmol/L (10-20); BUN (Urea Nitrogen) 8 mg/dL (9.8-20.1); Calc. Creatinine Clearance 103 mL/min (70-130); Calcium 8.3 mg/dL (7.8-10.44); Carbon Dioxide 23 mmol/L (23-31); Chloride 110 mmol/L (98-107); Glucose 112 mg/dL (80-115); Potassium 3.8 mmol/L (3.5-5.1); Sodium 139 mmol/L (136-145)
[2024-12-04] MEDS ORDERED: FATTY ACID PO SCH (09:00)
[2024-12-04] MEDS ORDERED: Non-Formulary Item 1 EACH (Levothyroxine Sodium [Levothyroxine Sodium] 125 MCG Capsule) PO SCH (09:00)
[2024-12-04] MEDS ORDERED: OMEGA3 PO SCH (09:00)
[2024-12-04] MEDS ORDERED: FLAXSEED PO SCH (09:00)
[2024-12-04] MEDS ORDERED: [UNRECOGNIZED DRUG - OTHER] PO SCH (09:00)
[2024-12-04] MEDS ORDERED: Non-Formulary Item 1 EACH (Ferrous Sulfate [Iron] 325 MG Tablet) PO SCH (09:00)
[2024-12-04] MEDS: Ferrous Sulfate 325 MG TAB PO SCH (09:00)
[2024-12-04] MEDS ORDERED: Non-Formulary Item 1 EACH (Topiramate [Topiramate] 50 MG Tablet) PO SCH (09:00)
[2024-12-04] MEDS ORDERED: Non-Formulary Item 1 EACH (Multivit-Min/Iron/Folic/Lutein [Centrum Silver Women] 1 TABLET PO SCH (09:00)
[2024-12-04] MEDS: Aspirin 81 mg Enteric Coated Tablet PO SCH (09:02)
[2024-12-04] MEDS: Topiramate 100 MG TAB PO SCH (09:02)
[2024-12-04] MEDS: Multivitamin W/ Minerals 1 TAB PO SCH (09:02)
[2024-12-04] MEDS: FLAX SEED OIL PO SCH (12:28)
[2024-12-04] MEDS: Senokot S 8.6-50 MG TAB PO SCH (20:59)
[2024-12-05 05:51] LABS: #Basophils Less than 0.03 10x3/uL (0.0-0.2); #Eosinophils 0.06 10x3/uL (0.0-0.7); #Monocytes 1.04 10x3/uL (0.11-0.59); #Neutrophils 4.07 10x3/uL (1.40-6.50); %Basophils 0.1 % (0.0-1.0); %Eosinophils 0.8 % (0.0-10.0); %Lymphocytes 29.7 % (21.0-51.0); %Monocytes 14.0 % (0.0-10.0); %Neutrophils 55.0 % (42.0-75.0); Hematocrit 29.5 % (36.0-47.0); Hemoglobin 8.8 g/dL (12.0-16.0); Mean Corpuscular Hemoglobin 23.0 pg (27.0-31.0); Mean Corpuscular Volume 77.2 fL (78.0-98.0); Platelet Count 216 10x3/uL (130-400); Red Blood Cell (RBC) Count 3.82 mill/uL (4.20-5.40); White Blood Cell (WBC) Count 7.41 10x3/uL (4.8-10.8)
[2024-12-05 06:05] LABS: Anion Gap 12 mmol/L (10-20); BUN (Urea Nitrogen) 10 mg/dL (9.8-20.1); Calc. Creatinine Clearance 83 mL/min (70-130); Calcium 8.5 mg/dL (7.8-10.44); Carbon Dioxide 24 mmol/L (23-31); Chloride 108 mmol/L (98-107); Glucose 91 mg/dL (80-115); Potassium 3.4 mmol/L (3.5-5.1); Sodium 141 mmol/L (136-145)
[2024-12-05 12:19] VITALS: BP 118/73; TEMP 97.4
== END 2024-12-05 14:50 | disposition home health service (06) | DRG 493 ==
LOC: ERS 20:27 → SURG B 12-03 01:55
PROVIDERS: ADMIT Surgery; ATTEND Surgery
PROC: 0QSJ04Z Reposition Right Fibula with Internal Fixation Device, Open Approach (ICD-10-PCS; principal; 2024-12-03)
PROC: 3E03329 Introduction of Other Anti-infective into Peripheral Vein, Percutaneous Approach (ICD-10-PCS; 2024-12-03)
DX: S82.851A Displaced trimalleolar fracture of right lower leg, initial encounter for closed fracture (principal); S82.001A Unspecified fracture of right patella, initial encounter for closed fracture; W19.XXXA Unspecified fall, initial encounter; I10 Essential (primary) hypertension; E11.9 Type 2 diabetes mellitus without complications; Z98.890 Other specified postprocedural states; Z85.3 Personal history of malignant neoplasm of breast; Z79.899 Other long term (current) drug therapy; Z79.82 Long term (current) use of aspirin
CPT/HCPCS: 29505; 36415; 36416; 80048; 80053; 85025; 86850; 86900; 86901; 96374; C1713; J0169; J0665; J1100; J2250; J2704; J3480; J7030